=== PATIENT | male | born 1985 | race Caucasian/White ===

== ENCOUNTER 2022-12-28 16:41 | Emergency (ER) | payer OTHER, SELFPAY ==
--- NOTE | ~2022-12-28 | CT_ITS ---
EXAMINATION: CT abdomen pelvis w con DATE: 12/28/2022 17:59 INDICATION: RLQ INTERMITTENT ACUTE ABDOMINAL PAIN TODAY. TECHNIQUE: Computed tomography (CT) of the abdomen and pelvis was performed with 100 mL Omnipaque-350 intravenous contrast. Automated exposure control and iterative reconstruction technique were employe d. The dose-length product was 536.96 mGy-cm. COMPARISON: None. FINDINGS: Lower thorax: Unremarkable Liver: Normal. Biliary/Gallbladder: Gallbladder is normal. No bile duct dilation. Pancreas: No mass or duct dilation. Spleen: Normal. Adrenals:No mass. Kidneys: No mass, stone, or hydronephrosis. GI tract: No small or large bowel dilation. Normal appendix. Mesentery/Peritoneum: No ascites, mass, or free air. Retroperitoneum: No mass. Pelvis: Pelvic organs are within normal limits. Soft Tissues: Soft tissues and body wall unremarkable. Bones: No acute osseous finding. IMPRESSION: Normal CT abdomen and pelvis findings. Reviewed, dictated and finalized at location K.
--- NOTE | 2022-12-28 16:45 | ED.ABDPAIN ---
HPI - Abdominal Pain General Chief Complaint: Abdominal Pain Stated Complaint: Rt abdominal pain Time Seen by Provider: 12/28/22 16:44 Source: patient and RN notes reviewed Mode of arrival: ambulatory Limitations: no limitations History of Present Illness HPI narrative: Patient states that he began having some abdominal pain in his right lower quadrant about 9:00 a.m. this morning. Seemed to get worse throughout the day. Said he did a search online for his symptoms and thought might be appendicitis. He denies any fever chills. Denies any nausea vomiting. He does not recall any injury with any heavy lifting or strenuous activity. He denies any constipation or diarrhea. MD elicited complaint: abdominal pain Pertinent past history: none Onset (ago): hour(s) (8) Pain Consistency: intermittent Location: RLQ Severity: moderate Quality: stabbing and sharp Radiation: none Migration to: no migration Exacerbating factors: movement (walking) Relieving factors: nothing Associated symptoms: denies other symptoms Related Data Home Medications Medication Instructions Recorded Confirmed No Home Medications 12/28/22 12/28/22 Allergies Allergy/AdvReac Type Severity Reaction Status Date / Time bee venom protein (honey bee) Allergy Swelling Verified 12/28/22 17:29 [bees] Review of Systems Review of Systems: All systems reviewed & are unremarkable except as noted in HPI and below Constitutional: Constitutional: Denies chills and Denies fever(s) Gastrointestinal: Gastrointestinal: Denies constipation, Denies diarrhea, Denies nausea and Denies vomiting PMFSH Past Medical History Medical History (Updated 12/28/22 @ 18:09 by Braden Viera MD) No active medical problems Surgical History Surgical History (Updated 12/28/22 @ 17:03 by Braden Viera MD) Crushed finger, distal had tendon repair Exam Const: General: healthy appearing, no acute distress and alert Nutritional Appearance: well nourished Orientation/consciousness: patient oriented x3 Limitations: no limitations HENMT: Head: normal to inspection Ears: external ears normal Face/Nose/Sinus: Normal external nose present Face and sinus: normal facial exam Mouth: Yes moist mucous membranes Eyes: Conjunctivae: conjunctivae normal Pupils: Equal, round and reactive pupils present EOM: EOMs intact bilaterally Neck: Neck: normal visual inspection Resp: Effort & Inspection: normal respiratory effort Auscultation: clear to auscultation bilaterally Cardio: Rate: regular rate Rhythm: regular rhythm GI: GI Palp: Yes Soft to palpation, Yes Tenderness to palpation present (GI) ( mild in the RLQ and moderate in the LLQ), Yes Guarding due to palpation present (GI) ( moderate LLQ mild RLQ) and No Rebound tenderness present Auscultation: Hypoactive bowel sounds present Back/Spine/Pelvis: Back: no CVA tenderness Cervical Spine: cervical ROM normal Thoracic/Lumbar Spine: thoraco-lumbar ROM normal Skin: General skin exam: normal color Rashes: no rashes Neuro: General: patient oriented x3, moves all extremities, no focal motor deficits and CN's II-XI intact bilaterally Speech: normal speech Gait exam (Neuro): Normal gait present Extrem: General: normal to inspection and no clubbing, cyanosis or edema Psych: Mental Status: mental status grossly normal Affect: normal affect Attitude: cooperative Course Vital Signs Vital signs: Vital Signs Temperature 36.5 C 12/28/22 16:46 Pulse Rate 83 12/28/22 16:46 Respiratory Rate 18 12/28/22 16:46 Blood Pressure 130/90 12/28/22 16:46 Pulse Oximetry 98 12/28/22 16:46 Oxygen Delivery Room Air 12/28/22 16:46 Temperature 36.9 C 12/28/22 18:20 Pulse Rate 83 12/28/22 16:46 Respiratory Rate 18 12/28/22 16:46 Blood Pressure 130/90 12/28/22 16:46 Pulse Oximetry 98 12/28/22 16:46 Oxygen Delivery Room Air 12/28/22 16:46 MDM - Abdominal Pain Differential Diagnosis
[2022-12-28 16:46] VITALS: BP 130/90; PULSE 83; RESP 18; TEMP 36.5; O2SAT 98
[2022-12-28 17:15] LABS: Basophils Absolute Auto 0.04 K/mm3 (0.00-0.10); Basophils Percent Auto 0.5 % (0.0-1.0); Eosinophils Absolute Auto 0.07 K/mm3 (0.02-0.50); Eosinophils Percent Auto 0.9 % (1.0-6.0); Hematocrit 42.5 % (40.0-54.0); Hemoglobin 14.2 g/dL (14.0-18.0); Immature Granulocyte Absolute 0.04 K/mm3 (0.00-0.00); Immature Granulocyte Percent A 0.5 % (0.0-0.0); Lymphocytes Percent Auto 22.9 % (18.0-42.0); Mean Corpuscular HGB Conc 33.4 g/dL (32.0-36.0); Mean Corpuscular Hemoglobin 29.6 pg (27.0-31.0); Mean Corpuscular Volume 88.5 fL (78.0-102.0); Mean Platelet Volume 9.1 fl (8.7-11.0); Monocytes Absolute Auto 0.47 K/mm3 (0.10-0.90); Monocytes Percent Auto 6.3 % (2.0-11.0); Neutrophils Absolute Auto 5.1 K/mm3 (1.7-7.2); Neutrophils Percent Auto 68.9 % (50.0-70.0); Platelet Count Result 240 K/mm3 (150-420); Red Cell Distribution Width 13.1 % (11.6-14.4); White Blood Count 7.4 K/mm3 (4.8-10.8)
[2022-12-28 17:16] LABS: Appearance Urine Clear (Clear); Bilirubin Urine Negative (Negative); Blood Urine Negative (Negative); Color Urine Light Yellow (Yellow); Glucose Urine UA Negative (Negative); Ketones Urine Negative (Negative); Leukocyte Esterase Ur Negative LEU/UL (Negative); Nitrate Urine Negative (Negative); Protein Urine Negative (Negative); Urobilinogen Urine 0.2 mg/dL (0.2-1.0)
[2022-12-28 17:18] LABS: Add Urine Microscopic? NO
[2022-12-28 17:34] LABS: Lactic Acid Reflex 0.5 mmol/L (0.4-2.0)
[2022-12-28 17:38] LABS: Alanine Aminotransferase 33 U/L (16-63); Alkaline Phosphatase 58 U/L (46-116); Amylase 58 U/L (25-115); Anion Gap 11 mmol/L (8-16); Aspartate Amino Transferase 14 U/L (15-37); Bilirubin Direct 0.2 mg/dL (0-0.2); Bilirubin,Total 0.2 mg/dL (0.00-1.00); Blood Urea Nitrogen 16 mg/dL (7-18); Carbon Dioxide 26 mmol/L (21-32); Chloride 104 mmol/L (98-108); Estimated CRCL calculation 133 ml/min; Estimated Glomerular Filt Rate > 60; Glucose 93 mg/dL (70-99); Lipase 26 U/L (16-77); Osmolality Calculated 293 mOsm/kg (285-295); Sodium 141 mmol/L (136-145); Total Protein 7.2 g/dL (6.4-8.2)
[2022-12-28 17:39] LABS: CRP < 0.5 mg/dL (0.0-0.9)
[2022-12-28 18:20] VITALS: TEMP 36.9
== END 2022-12-28 18:15 | disposition home or self-care (01) ==
PROVIDERS: Emergency Provider Emergency Medicine
DX: R10.31 Right lower quadrant pain (principal)
CPT/HCPCS: 36415; 74177; 80053; 81003; 82150; 82248; 83605; 83690; 85025; 86140; 99284; Q9967